=== PATIENT | female | born 1985 | race Caucasian/White ===

== ENCOUNTER 2022-11-01 13:00 | Outpatient (OUT) | payer OTHER, SELFPAY | END 2022-11-01 13:01 | disposition home or self-care (01) | LOC: PST 13:03 | PROVIDERS: Visit Provider Obstetrics & Gynecology | DX: Z01.818 Encounter for other preprocedural examination (principal); Z30.2 Encounter for sterilization; N92.1 Excessive and frequent menstruation with irregular cycle; N93.9 Abnormal uterine and vaginal bleeding, unspecified; R10.2 Pelvic and perineal pain ==

== ENCOUNTER 2022-11-23 06:10 | Day surgery (SDC) | payer OTHER, SELFPAY ==
[2022-11-01 13:23] VITALS: BP 117/78; PULSE 64; RESP 16; TEMP 36.3; O2SAT 99; BMI 32.6
[2022-11-23] VITALS (12 sets, daily range): BP systolic 111–124; BP diastolic 68–80; PULSE 52–90; RESP 13–18; TEMP 35.8–36.3; O2SAT 98–100
[2022-11-23 06:23] LABS: Basophils Percent Auto 0.3 % (0.2-2.0); Eosinophils Absolute Auto 0.2 10^3/uL (0.0-0.7); Eosinophils Percent Auto 2.4 % (0.9-7.0); Hematocrit 37.3 % (36.0-48.0); Hemoglobin 11.7 g/dL (12.0-16.0); Immature Granulocytes Abs Auto 0.01 10^3/uL (0.00-0.03); Immature Granulocytes Pct Auto 0.1 % (0.0-0.5); Lymphocytes Absolute Auto 2.6 10^3/uL (1.2-3.8); Lymphocytes Percent Auto 37.4 % (20.5-60.0); Mean Corpuscular HGB Conc 31.4 g/dL (29.9-35.2); Mean Corpuscular Volume 85.9 fL (81.0-99.0); Mean Platelet Volume 9.2 fL (9.5-13.5); Monocytes Absolute Auto 0.5 10^3/uL (0.3-0.8); Monocytes Percent Auto 6.5 % (1.7-12.0); Neutrophils Absolute Auto 3.8 10^3/uL (1.4-6.5); Neutrophils Percent Auto 53.3 % (43.0-75.0); Platelet Count 235 10^3/uL (150-450); Red Blood Count 4.34 10^6/uL (4.20-5.40); Red Cell Distribution Width 13.3 % (11.0-15.0); White Blood Count 7.1 10^3/uL (4.0-11.0)
[2022-11-23 06:42] LABS: HCG Quantitative <1 mIU/mL
[2022-11-23] MEDS: LACTATED RINGER'S SOLUTION 1,000 ML 50 ML IV (07:01)
--- NOTE | 2022-11-23 09:05 | P.ON_ITS ---
Brief Operative Note Date of procedure: 11/23/22 Pre-op diagnosis: menorrhagia, desires permanent sterilization Post-op diagnosis: same Procedure: NAME OF PROCEDURE: Laparoscopic bilateral salpingectomy, rt ovarian cystotomy with Jaimee endometrial ablation with hysteroscopy exam under anesthesia with pap and endometrial biopsy PROCEDURE: The patient was taken back to the OR where she was prepped and draped in the normal sterile fashion after being placed in the dorsal lithotomy position, after being placed under general anesthesia without difficulty. a weighted speculum was then placed into the vagina. Pap and endometrial bx were performed without difficultyThe anterior lip was grasped with a single tooth tenaculum. The patient was then sounded to approximatley 9cm. The patient was gently sounded using Hegar dilators and the hysteroscope was passed through the cervix into the uterus where both ostia were seen. No gross evidence of polyps, fibroids or malignancy. The cervical length was noted to be 4cm. The Jaimee ablation apparatus was set to approximately 5cm in length. This was placed in through the cervix and into the uterus. After the seal was tested, at that time the total ablation of 120 seconds was performed with the Jaimee without difficulty. All instruments were removed from the vagina. A wet sponge stick was placed into the patient's vagina. Attention was then turned to the patient's abdomen, where a scalpel was used to make a small infraumbilical incision. The S retractors were then used to dissect the underlying layers until the fascia could be seen. The fascia was then grasped with Kirti clamps and tented up. A knife was then used to make a small incision to the fascia. The muscle was identified, at that time two sutures of #0 Vicryl on a GI needlewas then used and placed through the fascia. The peritoneum was then identified and entered bluntly. The 10-4 Tfifanie was then placed into the patient's abdomen. This was confirmed with direct visualization of the bowel, using the laparoscope. The patient's abdomen was then insufflated using approximately 4 liters of CO2 gas. Survey of the patient's abdomen demonstrated normal appearing ovaries, uterus and tubes. A second and third lateral ports, which was 8 and 5mm in size, was then placed laterally after incision was made in the skin under direct visualization. The patient's tube on the patient's right side was identified. The tube was then tented up using a grasper. The ligasure was used to transect and coagulate the mesosalpingx from the fibriated end to the insertion at the uterus, the tube was amputated and removed in its entirety.? Excellent hemostasis was noted. ?This was performed on the contralateral sideas well. Rt ovarian cystotomy was performed using the monopolar scissors. The lateral ports were then moved under direct visualization withexcellent hemostasis. a rt ovarian cystectomy was performed using the vessel sealer. The abdomen was deinsufflated. All instruments were removed from the patient's abdomen. The fascia was closed using the #0 Vicryl on GI needle. The skin was closed using 4-0 Vicryl subcuticularly. All instruments were removed from the patient's vagina as well. The patient was taken out of the dorsal lithotomy position and placed in the supine position and taken to recovery in stable condition. Sponge, lap and needle counts were correct x2. ??? Anesthesia: [facility] Surgeon: Gordo Rios [employer] Specialist: Latoya Rowe Estimated blood loss (mL): 5 Pathology: other (bilateral tubes) Condition: stable Disposition: PACU
[2022-11-23] MEDS: MEPERIDINE HCL/PF 25 MG/ML VIAL IVP (09:32)
[2022-11-23] MEDS: HYDROCODONE/ACETAMINOPHEN 5-325 MG TABLET 1 TAB PO (09:42)
--- NOTE | 2022-11-23 09:47 | PC.NURSE ---
Patient has 3 incisions on her abdomen. Labeled 1 to 3 # 3 has scant drop of blood. Hannah pad is clean and dry.
--- NOTE | 2022-11-23 09:56 | PC.NURSE ---
Patient resting comfortable at this time with eyes open. jasson.
[2022-11-28 14:11] LABS: HPV Aptima Negative (Negative); Pap IG (Image Guided) Note (.)
== END 2022-11-23 10:36 | disposition home or self-care (01) ==
PROVIDERS: Visit Provider Obstetrics & Gynecology
PROC: (CPT 58563; principal; 2022-11-23 07:45)
PROC: (CPT 58563; 2022-11-23 07:45)
DX: Z30.2 Encounter for sterilization (principal); N92.1 Excessive and frequent menstruation with irregular cycle; N93.9 Abnormal uterine and vaginal bleeding, unspecified; R10.2 Pelvic and perineal pain; Z87.828 Personal history of other (healed) physical injury and trauma; F41.9 Anxiety disorder, unspecified; F32.A Depression, unspecified; F43.10 Post-traumatic stress disorder, unspecified
CPT/HCPCS: 58563; 58661; 58662; 36415; 84702; 85025; 87624; 88302; 88305; 99999; G0145; J2704

== ENCOUNTER 2025-03-30 16:04 | Emergency (ER) | payer OTHER, SELFPAY ==
[2025-03-30 16:09] VITALS: BP 142/91; PULSE 79; TEMP 36.8; O2SAT 100; BMI 32.9
--- NOTE | 2025-03-30 16:13 | XR_ITS ---
[facility] [place] [id number] Patient Name: GRAYSON FINNEGAN MRN: [facility]:[id number] date: 1985 Sex: F Assigned Patient Location: ER Current Patient Location: ED.MAIN Accession/Order Number: [id number] Exam Date: 03/30/2025 16:24 Report Date: 03/30/2025 17:30 At the request of: MING HONEYCUTT MD Procedure: XR foot LT min 3V 3 views of left foot CLINICAL HISTORY: [place] a pop in the plantar aspect COMPARISON: None FINDINGS: No fracture or dislocation identified. Soft tissues unremarkable. No radiopaque foreign body. XR/XR foot LT min 3V IMPRESSION: Negative acute osseous abnormality. Impression dictated by: Cristhian Barraza M.D. 03/30/2025 5:30 PM Dictation Location: [place] [address] Electronically authenticated by: [id number] Y Date: 03/30/2025 17:30
--- NOTE | 2025-03-30 16:24 | ED.GENADUL1 ---
HPI HPI - General Adult General Chief complaint: Extremity Injury, Lower Stated complaint: FELT A POP IN HER FOOT WHILE SHE WAS WALKING Time Seen by Provider: 03/30/25 16:06 Source: patient Mode of arrival: Wheelchair History of Present Illness HPI narrative: 39-year-old female presented to the emergency department for pain in the plantar aspect of her left foot. She was walking at work and felt a popping sensation. No pain in the ankle. She did not fall. This happened about an hour and a half ago. Related Data Previous Rx's ?Medication ?Instructions ?Recorded ibuprofen 800 mg tablet 800 mg PO Q8H PRN pain #20 tabs 03/30/25 Allergies Allergy/AdvReac Type Severity Reaction Status Date / Time No Known Drug Allergies Allergy Verified 03/30/25 16:08 Opioid HPI Opioid Management Most Recent Opioid Data: Last Pain Scale 4 Today, 16:09 Review of Systems ROS Narrative A ten point review of systems is negative except as noted above. [facility] Medical History (Updated 03/30/25 @ 17:37 by Chris Victor MD) Anemia ?D64.9 - Anemia, unspecified (ICD-10) Insomnia ?G47.00 - Insomnia, unspecified (ICD-10) Panic attacks ?F41.0 - Panic disorder [episodic paroxysmal anxiety] (ICD-10) PTSD (post-traumatic stress disorder) ?F43.10 - Post-traumatic stress disorder, unspecified (ICD-10) Depression ?F32.A - Depression, unspecified (ICD-10) Anxiety ?F41.9 - Anxiety disorder, unspecified (ICD-10) COVID-19 ?U07.1 - COVID-19 (ICD-10) Migraine ?G43.909 - Migraine, unspecified, not intractable, without status migrainosus (ICD-10) Ulcerative colitis ?K51.90 - Ulcerative colitis, unspecified, without complications (ICD-10) Heartburn ?R12 - Heartburn (ICD-10) Menorrhagia ?N92.0 - Excessive and frequent menstruation with regular cycle (ICD-10) Pelvic pain ?R10.2 - Pelvic and perineal pain (ICD-10) History of trauma ?Z87.828 - Personal history of other (healed) physical injury and trauma (ICD-10) Abnormal uterine bleeding ?N93.9 - Abnormal uterine and vaginal bleeding, unspecified (ICD-10) Request for sterilization ?Z30.2 - Encounter for sterilization (ICD-10) Surgical History (Updated 11/01/22 @ 13:39 by Josee Steiner NP) H/O foot surgery ?Z98.890 - Other specified postprocedural states (ICD-10) History of colonoscopy ?Z98.890 - Other specified postprocedural states (ICD-10) Family History (Updated 11/01/22 @ 13:28 by Josee Steiner NP) Other Congenital heart anomaly Family history of diabetes mellitus PONV (postoperative nausea and vomiting) Social History (Updated 11/01/22 @ 13:22 by Josee Steiner NP) Within the past year, how often did you have a drink containing alcohol: monthly or less Smoking status: Never smoker Non-prescribed substance use: denies use 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 Skin:Warm, dry, no pallor noted.There is no rash noted. Head:Normocephalic, atraumatic Eye: Normal conjunctiva, no drainage Ears, Nose, Mouth, and Throat: oral mucosa is moist. Nares patent. Cardiovascular:Regular Rate and Rhythm Respiratory:Patient is in no distress, no accessory muscle use Back:non-tender GI:Normal bowel sounds, no tenderness to palpation, no masses appreciated.No rebound, guarding, or rigidity noted. Musculoskeletal: The left ankle is nontender. She has tenderness to the plantar aspect of the left foot. No bruise or abrasion or open area of skin Neurological: Awake and alert and oriented Psychiatric:Cooperative Constitutional Vital Signs, click to edit/add: Last Vital Signs Temp 98.3 F 03/30/25 16:09 Pulse 79 03/30/25 16:09 Resp 16 03/30/25 16:09 BP 142/91 H 03/30/25 16:09 Pulse Ox 100 03/30/25 16:09 O2 Del Method Room Air 03/30/25 16:09 Course Vital Signs Vital signs: Vital Signs Temperature 98.3 F 03/30/25 16:09 Pulse Rate 79 03/30/25 16:09 Respiratory Rate 16 03/30/25 16:09 Blood Pressure 142/91 H 03/30/25 16:09 Pulse Oximetry 100 03/30/25 16:09 Oxygen Delivery Method Room Air 03/30/25 16:09 Temperature 98.3 F 03/30/25 16:09 Pulse Rate 79 03/30/25 16:09 Respiratory Rate 16 03/30/25 16:09 Blood Pressure 142/91 H 03/30/25 16:09 Pulse Oximetry 100 03/30/25 16:09 Oxygen Delivery Method Room Air 03/30/25 16:09 Medical Decision Making MDM Narrative Medical decision making narrative: X-rays showed no acute finding per radiologist. My clinical impression is that she has a foot sprain. She was provided a prescription for ibuprofen. Treatment diagnosis and follow-up were discussed with the patient. Differential Diagnosis Differential Diagnosis: Foot sprain, foot fracture Imaging Data Left foot x-ray: Radiologist's impression: ITS Impressions Foot X-Ray 03/30/25 16:13 IMPRESSION: Negative acute osseous abnormality. Impression dictated by: Cristhian Barraza M.D. 03/30/2025 5:30 PM Dictation Location: [place] [address] Electronically authenticated by: [id number] Y Date: 03/30/2025 17:30 Discharge Plan Discharge Chief Complaint: Extremity Injury, Lower Clinical Impression: Sprain of foot, left Patient Disposition: Home, Self-Care Time of Disposition Decision: 17:37 Condition: Good Mode of Transportation: Private Vehicle Prescriptions / Home Meds: New ibuprofen 800 mg tablet 800 mg PO Q8H PRN (Reason: pain) Qty: 20 0RF Print Language: Sami Instructions: Foot Sprain (ED) Referrals: Physician,Non-Staff, MD [Primary Care Provider] - 1 week Javier Garcia DPM [Physician, Podiatry]
--- OUTSIDE RECORDS SUMMARY | 2025-03-30 16:47 | XMS_ITS | Clinical Summary ---
Author Organization [facility] tem Address [id number] [address] [place] [address] Care Team Providers Care Surgical Specialist Name Role Phone Unavailable Primary Care Provider Unavailabl e Allergies No known active allergies Medications MedicationSigDispense QuantityRefillsLast FilledStart DateEnd DateStatus norgestimate-ethinyl estradiol (ORTHO-CYCLEN) 0.25-35 mg-mcg per tablet Take 1 tablet by mouth daily.Active FLUoxetine (PROzac) 20 mg capsule Indications:post traumatic stress disorderTake 20 mg by mouth daily Indications: Posttraumatic Stress Syndrome.Active methylPREDNISolone (MEDROL, COBY,) 4 mg tablet follow package directions 21 tablet 10/20/2023ctive ibuprofen (MOTRIN) 800 mg tablet Take 1 tablet (800 mg total) by mouth every 6 (six) hours as needed for pain. 30 tablet 10/20/2023ctive Active Problems ProblemNoted DateDiagnosed DateNon-specific cdxbeet5810/22/2018Blood present in stool10/17/2018 Family History Medical HistoryRelationNameCommentsDepressionFatherHeart diseaseFatherOther MothercolitisRelationNameStatusCommentsFatherDeceasedMotherAlive Social History Tobacco UseTypesPacks/DayYears UsedDateSmoking Tobacco: NeverSmokeless Tobacco: NeverAlcohol UseStandard Drinks/WeekCommentsYes0 (1 standard drink = 0.6 oz pure alcohol)rareChildcareAnswerDate NeumznjqLwgephouzMtrxncc24/12/2019Employment AnswerDate EgskuwnwCznjpqsmpjOmboiep83/12/2019Hunger ScreeningAnswerDate RecordedWithin the past 12 months we worried whether our food would run out before we got money to buy more.Never True10/20/2023Within the past 12 months the food we bought just didn't last and we didn't have money to get more.Never True4Purpose - LifeAnswerDate RecordedPurpose and direction in life Hjhpxdp98/11/2021CommentsNoSex and Gender InformationValueDate Recorded Sex Assigned at BirthNot on fileLegal WwjAwsczc88/06/2015 12:12 PM EDTGender IdentityNot on fileSexual OrientationNot on file Last Filed Vital Signs Vital SignReadingTime TakenCommentsBlood Ecyllmme089/8706 2:18 PM EDT Bkrdd2300/23/2024 2:18 PM CWNCtlecixlaub18.4 ??C (97.5 ??F)10/20/2023 2:18 PM EDTRespiratory Oouk248710/20/2023 2:18 PM EDTOxygen Mvvsufjvzz046%10/20/2023 2:18 PM EDTInhaled Oxygen Concentration--Iashua33.7 kg (200 lb)10/20/2023 2:18 PM EDT Gonbzw739.2 cm (5' 7 )10/20/2023 2:18 PM EDTBody Mass Index31.32010/20/2023 2:18 PM EDT Plan of Treatment Health MaintenanceDue DateLast DoneCommentsDepression Ppejimkqz67/23/2000Pap Smear12/19/2008dult BMI Qbewxosqw21Tobacco Screening OVID-19 Vaccine ( - season)507/, 11/04/2020Influenza Vpkmidt0012/28/2024DTaP,Tdap and Td Vaccines (2 - Td or Tdap) Medical Devices Not on file Insurance
--- OUTSIDE RECORDS SUMMARY | 2025-03-30 16:48 | XMS_ITS | Clinical Summary ---
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 [phone] Allergies No known active allergies Medications MedicationSigDispense QuantityRefillsLast FilledStart DateEnd DateStatus Multiple Vitamin (multivitamin) capsule Take 1 capsule by mouth DailyActive albuterol HFA 90 mcg/act inhaler Indications:Cough, unspecified type,Chest tightnessInhale 2 puffs every 4 (four) hours if needed (cough, chest tightness) for up to 10 days 18 g 5Active Active Problems ProblemNoted DateDiagnosed DateHistory of IBS03/16/2024ilateral occipital nzyzfinxi13/03/2023ervical paraspinal muscle spasm11/29/2022Metrorrhagia 11/29/2022Migraine without aura, intractable, with status fnlhqusnrys62/03/2023 Obesity, Class I, BMI 30-34.908/haryngeal aubnaiae12/03/2023Non-specific xznjvvd3810/22/2018 Resolved Problems ProblemNoted DateDiagnosed DateResolved DateComplicated pbhypwce39/03/2023 03/16/20242766Hignarxrv07Obstructive sleep apnea11/29/2022 03/16/2024lood present in stool Immunizations ImmunizationAdministration DatesNext McoQayb0405/09/2016 Family History Medical HistoryRelationNameCommentsNo Known ProblemsBrother(2)No Known Problems DaughterHeart diseaseFathertricuspid valve defectcongenatile heart defectFather DiabetesMaternal GrandfatherDiabetesMaternal GrandmotherUlcerative colitisMother CancerOtherDiabetesPaternal GrandmotherRelationNameStatusCommentsBrother(2) DaughterAliveFatherDeceasedMaternal GrandfatherMaternal GrandmotherMotherAlive OtherPaternal GrandfatherDeceasedPaternal Grandmother Social History Tobacco UseTypesPacks/DayYears UsedDateSmoking Tobacco: NeverSmokeless Tobacco: Never Tobacco Cessation:Counseling Given: Not Answered Alcohol UseStandard Drinks/WeekCommentsNot Currently0 (1 standard drink = 0.6 oz pure alcohol)Caffeine: 1-2 cups/dayAUDIT-CAnswerDate RecordedQ1: How often do you have a drink containing alcohol?Monthly or less03/16/2024Q2: How many drinks containing alcohol do you have on a typical day when you are drinking?1 or 2 03/16/2024Q3: How often do you have six or more drinks on one occasion?Never 03/16/2024CommentsUnknownSex and Gender InformationValueDate RecordedSex Assigned at BirthNot on fileLegal NorRntvyk49/15/2023 7:40 PM EDTGender Identity Not on fileSexual OrientationNot on file Last Filed Vital Signs Vital SignReadingTime TakenCommentsBlood Hbokzrnn282/7202 9:17 AM EST Qxbpe910206/05/2024 9:17 AM ANQUoeywteavke37.8 ??C (98.2 ??F)06/05/2024 9:17 AM ESTRespiratory Rate--Oxygen Stlsaajhkg02%06/05/2024 9:17 AM ESTroom air, resting Inhaled Oxygen Concentration--Nczchc42.1 kg (203 lb)06/01/2024 11:40 AM EST Hcbgts888.2 cm (5' 7 )03/16/2024 8:32 AM ESTBody Mass Index31.7903/16/2024 8:32 AM EST Plan of Treatment [place] [id number] Care Teams Team MemberRelationshipSpecialtyStart DateEnd Terra Carroll MD PCP - GeneralFamily Gclrbgbw27/5/24 Maritza Griffith NP [address] [place] [address] Nurse PractitionerFamily Zfamifhp68/5/24
== END 2025-03-30 17:55 | disposition home or self-care (01) ==
PROVIDERS: Emergency Provider Emergency Medicine
DX: S93.602A Unspecified sprain of left foot, initial encounter (principal); X58.XXXA Exposure to other specified factors, initial encounter
CPT/HCPCS: 73630; 99283